=== PATIENT | female | born 1950 | race Caucasian/White ===

== ENCOUNTER 2021-10-09 08:48 | Day surgery (SDC) | payer MEDICARE, BC ==
[~2021-10-09] VITALS: Ht 162.6 cm; Wt 170.0 kg
[~2021-10-09 08:48] MED LIST: ALBU8.5H17 INH; ALPR-624 PO; ASPI81TA52 PO; CARV3.12 PO; FLUO20CA39 PO; MELA3TAB39 PO; MOME13HF INH; NAPR220C15 PO; NITR0.4T51 SL; ROFL500T7 PO; TOPI25TA15 PO; TRIA1TAB3 PO
[2021-10-09 09:00] VITALS: BP 144/73
[2021-10-09] MEDS ORDERED: diphenhydrAMINE 50 mg/ml inj ONE (09:00)
[2021-10-09] MEDS ORDERED: LIDOcaine Viscous 15ml cup ONE (09:00)
[2021-10-09] MEDS ORDERED: MIDAZolam 1 MG/ML 5ML VIAL ONE (09:00)
[2021-10-09] MEDS ORDERED: fentaNYL/PF 50MCG/1 ML 2ML syringe ONE (09:00)
[2021-10-09] MEDS ORDERED: DEXL60CA3 PO (09:21)
[2021-10-09 11:47] VITALS: BP 134/75
[2021-10-09 11:57] VITALS: BP 120/76
[2021-10-09 12:07] VITALS: BP 118/77
[2021-10-09 12:17] VITALS: BP 127/75
== END 2021-10-09 12:30 | disposition home or self-care (01) ==
LOC: GI LAB 08:48
PROVIDERS: ATTEND Internal Medicine Gastroenterology
DX: Z12.11 Encounter for screening for malignant neoplasm of colon (principal); K57.30 Diverticulosis of large intestine without perforation or abscess without bleeding; K29.80 Duodenitis without bleeding; K29.50 Unspecified chronic gastritis without bleeding; B96.81 Helicobacter pylori [H. pylori] as the cause of diseases classified elsewhere
CPT/HCPCS: 43239; 99153; G0121; G0500; J1200; J2250; J3010; J7030; Z7512; 45378; 88305; 88342; 99152; A4620